=== PATIENT | female | born 1990 | race Caucasian/White ===

== ENCOUNTER → 2018-02-01 12:05 | Outpatient (CLI) | payer BC, SELFPAY ==
--- NOTE | 2018-02-01 | DI.US.S_ITS ---
PROCEDURE: US ABDOMEN COMPLETE INDICATIONS: PAIN TECHNIQUE: Real-time scanning was performed of the abdominal and retroperitoneal organs, with image documentation. COMPARISON: None. FINDINGS: Liver: Liver is normal in size and homogeneous in echotexture except for presence of a 1.5 cm diameter echogenic mass without elevated internal vascularity of the right posterior hepatic segment, with a subtle hypoechoic central component, of uncertain etiology and clinical significance.. Gallbladder: The gallbladder appears normal Biliary ducts: Intrahepatic bile ducts are non-dilated. Extrahepatic bile duct caliber measures 4.8 mm. Normal is 6-7 mm or less in diameter, or 10 mm or less post-cholecystectomy. Pancreas: Visualized portions of the pancreas are sonographically normal. Spleen: Spleen is normal in size and homogeneous in echotexture. Kidneys: Kidneys are normal in size and echotexture. Right kidney measures 9.4 cm long; left kidney measures 10.5 cm long. No hydronephrosis or nephrolithiasis. No solid masses. Aorta: Visualized aorta is normal in caliber at less than 3 cm. Iliacs: Proximal common iliac arteries are normal in caliber at less than 2.5 cm. IVC: Intrahepatic inferior vena cava is patent. Miscellaneous: No free abdominal fluid. IMPRESSION: Incidental finding of a small 1.5 cm maximal dimension hyperechoic structure with low echogenicity within the central portion of this finding at the posterior right hepatic segment, of uncertain etiology and clinical significance. This is unlikely to be related to the pain clinically reported. Followup by ultrasound in 3-6 weeks is recommended unless clinically indicated sooner. Dictated by: Tolu Tinoco M.D. on 02/01/2018 at 15:46 Approved by: Tolu iTnoco M.D. on 02/01/2018 at 15:49
[2018-02-01 13:22] LABS: Add Manual Diff / Slide Review NO; Basophils Percent Auto 0.9 % (0-2); Eosinophils Percent Auto 0.7 % (2-4); Hematocrit 37.2 % (36-46); Hemoglobin 12.6 g/dL (12.0-16.0); Lymphocytes Percent Auto 32.5 % (25-40); Mean Corpuscular HGB Conc 33.8 % (30-36); Mean Corpuscular Hemoglobin 30.5 PG (26-34); Mean Corpuscular Volume 90.3 fL (80-100); Monocytes Percent Auto 4.1 % (3-14); Neutrophils Absolute Auto 4100 /uL (3000-5900); Neutrophils Percent Auto 61.8 % (50-75); Platelet Count 220 X10^3/uL (150-400); Red Blood Cell Count 4.12 X10^6/uL (4.0-5.2); Red Cell Distribution Width 12.8 % (11.6-14.8); White Blood Cell Count 6.7 X10^3/uL (4.5-11.0)
[2018-02-01 13:53] LABS: Alanine Aminotransferase 21 IU/L (9-52); Albumin 4.1 g/dL (3.5-5.0); Albumin Globulin Ratio 1.2 (1.0-2.8); Alkaline Phosphatase 69 U/L (38-126); Aspartate Aminotransferase 24 IU/L (14-36); BUN Creatinine Ratio 17.8 (6-22); Bilirubin Total 0.7 mg/dL (0.2-1.3); Blood Urea Nitrogen 16 mg/dL (7-17); Calcium 9.4 mg/dL (8.4-10.2); Carbon Dioxide 27 mmol/L (22-32); Chloride 104 mmol/L (98-107); Estimated Glomerular Filt Rate > 60.0 mL/min (>60); Globulin 3.3 g/dL (1.7-4.1); Glucose 99 mg/dL (70-100); HEMOLYSIS < 15 (0-50); Lipase 71 U/L (23-300); Potassium 4.2 mmol/L (3.4-5.1); Sodium 140 mmol/L (137-145); Total Protein 7.4 g/dL (6.3-8.2)
[2018-02-01 14:26] LABS: Pregnancy Test Serum,Qual Negative (Negative)
[2018-02-01 16:42] LABS: Hemoglobin A1C% w Est Avg Glu 7.7 % (4.0-6.0)
== END ==
PROVIDERS: Family Provider Physician Assistant Medical; PCP Physician Assistant Medical; Visit Provider Family Medicine
DX: R10.11 Right upper quadrant pain (principal); E10.9 Type 1 diabetes mellitus without complications; K76.9 Liver disease, unspecified
CPT/HCPCS: 36415; 76700; 80053; 83036; 83690; 84703; 85025

== ENCOUNTER → 2018-04-12 07:29 | Outpatient (CLI) | payer BC, SELFPAY ==
--- NOTE | 2018-04-12 | DI.NM.S_ITS ---
PROCEDURE: NM HIDA WITH CCK PHARMACEUTICAL: 5.3 mCi Tc-99m mebrofenin IV; 1.5 mcg CCK IV. INDICATIONS: ABDNORMAL PAIN TECHNIQUE: Following intravenous administration of Tc-99m mebrofenin, sequential anterior abdominal images were obtained. To evaluate the contractile response of the gallbladder in response to Cholecystokinin (CCK), sincalide (0.02 ?g/kg) was administered by slow intravenous infusion approximately 60 minutes after the administration of the radiopharmaceutical. Sequential imaging was continued for 30 minutes after the start of CCK infusion. Gallbladder ejection fraction was calculated. COMPARISON: [facility], , US ABDOMEN COMPLETE, 02/01/2018, 12:53. FINDINGS: Biliary scan: There is normal tracer uptake and excretion by the liver. There is normal visualization of the intrahepatic ducts, common bile duct, and gallbladder. There is normal tracer transit into the duodenum. CCK stimulation: There is normal contractile response of the gallbladder to CCK infusion. The calculated gallbladder ejection fraction is 80%; normal values are above 35%. It has been shown that any patient abdominal pain after CCK administration is related to the rate of CCK injection, rather than to any underlying gallbladder disease (Clinical Nuclear Medicine 2012; 37: 63-70. Journal of Nuclear Medicine 2014; 55: 1-9). IMPRESSION: Normal gallbladder ejection fraction. Dictated by: Tunde Perales M.D. on 04/12/2018 at 12:12 Approved by: Tunde Perales M.D. on 04/12/2018 at 12:14
== END ==
PROVIDERS: Family Provider Physician Assistant Medical; PCP Physician Assistant Medical; Visit Provider Family Medicine
DX: R10.11 Right upper quadrant pain (principal)
CPT/HCPCS: 78227; A9537; J2805

== ENCOUNTER → 2018-07-10 14:32 | Outpatient (CLI) | payer BC, SELFPAY ==
--- NOTE | 2018-07-10 | DI.US.S_ITS ---
PROCEDURE: US ABDOMEN LIMITED INDICATIONS: FOLLOW-UP HEPATIC MASS TECHNIQUE: Real-time focused scanning was performed of the abdomen, with image documentation. COMPARISON: [facility], [place], US ABDOMEN COMPLETE, 02/01/2018, 12:53. FINDINGS: No significant interval change in echogenic mass with central slightly hypo-echogenicity involving the right hepatic lobe posteriorly measuring 1.4 x 0.9 x 1.4 cm. IMPRESSION: No significant change in solid echogenic posterior right hepatic lobe mass likely representing a small cavernous hemangioma. Recommend continued sonographic surveillance or alternatively a hepatic protocol CT or MRI could be performed for confirmation. Dictated by: August Luna [facility] Interpreted: Santiago Whittaker MD on 07/10/2018 at 15:30 Approved by: Santiago Whittaker M.D. on 07/10/2018 at 17:54
== END ==
PROVIDERS: PCP Physician Assistant Medical; Visit Provider Family Medicine
DX: R16.0 Hepatomegaly, not elsewhere classified (principal); R10.11 Right upper quadrant pain
CPT/HCPCS: 76705

== ENCOUNTER → 2018-11-26 10:38 | Outpatient (CLI) | payer BC, SELFPAY | PROVIDERS: PCP Physician Assistant Medical; Visit Provider Physician Assistant | DX: N89.8 Other specified noninflammatory disorders of vagina (principal) | CPT/HCPCS: 87210 ==

== ENCOUNTER 2020-02-05 18:14 | Outpatient (CLI) | payer BC, OTHER, MEDICAID, SELFPAY | END 2020-02-05 19:01 | disposition home or self-care (01) | LOC: LABOR 18:23 → OB 02-06 14:24 | PROVIDERS: PCP Physician Assistant Medical; Referring Provider Obstetrics & Gynecology; Visit Provider Obstetrics & Gynecology | DX: O36.8130 Decreased fetal movements, third trimester, not applicable or unspecified (principal); O24.013 Pre-existing type 1 diabetes mellitus, in pregnancy, third trimester; E10.9 Type 1 diabetes mellitus without complications; Z96.41 Presence of insulin pump (external) (internal); Z79.4 Long term (current) use of insulin; Z3A.33 33 weeks gestation of pregnancy | CPT/HCPCS: 59025; G0378; G0379 ==

== ENCOUNTER 2021-07-12 04:01 | Emergency (ER) | payer SELFPAY ==
[2021-07-12] VITALS (10 sets, daily range): BP systolic 86–125; BP diastolic 46–58; PULSE 96–113; RESP 16; TEMP 36.5–36.9; O2SAT 98–100; BMI 25.9
--- NOTE | 2021-07-12 04:12 | ED_ITS ---
HPI - General Adult <Gisella Nguyen DO - Last Filed: 07/13/21 07:07> General Chief complaint: Diabetic Problem Stated complaint: type 1 diabetic, out of insulin Time Seen by Provider: 07/12/21 04:12 Source: patient Mode of arrival: Ambulatory Limitations: no limitations History of Present Illness HPI narrative: This is a 31-year-old female type 1 diabetic who states she is out of her insu mario. Patient states she is typically fairly well controlled. She has been a diabetic since age 4. She denies any history of retinopathy or kidney disease. She states she is only on insulin she uses an insulin pump. She states she ran out this evening around 9:00 p.m., she thought that she had refills called the pharmacy but there were none available. She will not be able to get a refill until Tuesday as her primary care office is closed over the weekend. Patient states she woke up overnight feeling shaky, nauseated and had 2 or 3 episodes of vomiting. She denies fevers. No chest pain or shortness of breath. No cold cough or congestive type symptoms. She was denies any diarrhea constipation. No dysuria, urgency or frequency. She states her sugars usually run 120-150 normal and so she ran out of her insulin. She has been hospitalized in the past for DKA but she states it is infrequent and has been quite sometime since that occurred. She has had C-sections but denies other surgeries. She denies any drug allergies. No tobacco, no alcohol or illicit. She is accompanied by her . Related Data Home Medications Medication Instructions Recorded Confirmed insulin aspart U-100 [Novolog SUBCUT 04/24/19 04/24/19 Flexpen U-100 Insulin] Previous Rx's Medication Instructions Recorded Oral Appliance for Mils JAILYN #1 ea 01/20/21 insulin lispro 100 unit/mL 1 sliding scale dose SUBCUT 07/12/21 subcutaneous solution (Humalog USEASDIRECTD #10 ml U-100 Insulin) ondansetron 4 mg disintegrating 4 mg PO Q6H PRN #14 tab 07/12/21 tablet Allergies Allergy/AdvReac Type Severity Reaction Status Date / Time No Known Drug Allergies Allergy Verified 04/24/19 10:11 Review of Systems <DO Shirley Medellin Last Filed: 07/13/21 07:07> Review of Systems ROS Unobtainable: All systems reviewed & are unremarkable except as noted in HPI and below Patient History <DO Shirley Medellin Last Filed: 07/13/21 07:07> Social History Smoking Status: Never smoker Smoking Status: Never smoker Substance Use Type: does not use Exam <DO Shirley Medellin Last Filed: 07/13/21 07:07> Narrative Exam Narrative: GENERAL: Alert and oriented x three, female in mild distress. HEENT: Head normocephalic, atraumatic, EOMI, pupils reactive, face symmetric, moist mucous membranes NECK: Supple, full range of motion CARDIOVASCULAR: Regular rate and rhythm without murmurs, rubs or gallops. RESPIRATORY: Breath sounds equal bilaterally, no wheezes rales or rhonchi. ABDOMEN: Soft, nontender. Normoactive bowel sounds all 4 quadrants. No guarding or rebound, rigidity, no mass : No CVA tenderness EXTREMITIES: Normal range of motion, no clubbing or edema. Neurovascularly intact NEUROLOGICAL: Cranial nerves II through XII grossly intact. Moving all extremities SKIN: Warm, dry, no petechiae, no rashes or lesions. Initial Vital Signs Initial Vital Signs: Vital Signs Temperature 97.7 F 07/12/21 04:09 Pulse Rate 96 H 07/12/21 04:09 Respiratory Rate 16 07/12/21 04:09 Blood Pressure 125/58 L 07/12/21 04:09 Pulse Oximetry 100 07/12/21 04:09 <DO Shirley Glass Last Filed: 07/12/21 08:15> Initial Vital Signs Initial Vital Signs: Vital Signs Temperature 97.7 F 07/12/21 04:09 Pulse Rate 96 H 07/12/21 04:09 Respiratory Rate 16 07/12/21 04:09 Blood Pressure 125/58 L 07/12/21 04:09 Pulse Oximetry 100 07/12/21 04:09 Course <DO Shirley Medellin Last Filed: 07/13/21 07:07> Orders Ordered: Discontinued Medications Sodium Chloride (Normal Saline 0.9%) 1,000 mls @ 1,000 mls/hr IV BOLUS ONE Stop: 07/12/21 05:21 Last Infusion: 07/12/21 05:50 Dose: 0 mls/hr Documented by: Admin: 07/12/21 04:41 Dose: 1,000 mls/hr Documented by: GERHARD Sodium Chloride (Normal Saline 0.9%) 1,000 mls @ 1,000 mls/hr IV BOLUS ONE Stop: 07/12/21 06:13 Last Infusion: 07/12/21 06:50 Dose: 0 mls/hr Documented by: Admin: 07/12/21 05:51 Dose: 1,000 mls/hr Documented by: GERHARD Sodium Chloride (Normal Saline 0.9%) 1,000 mls @ 200 mls/hr IV CONT MARCOS Last Infusion: 07/12/21 08:17 Dose: 0 mls/hr Documented by: Admin: 07/12/21 06:50 Dose: 200 mls/hr Documented by: GERHARD Insulin Human Regular (Insulin Regular 100 Unit/Ml 3 Ml Vial) 10 unit IV NOW ONE Stop: 07/12/21 05:41 Last Admin: 07/12/21 05:51 Dose: 10 unit Documented by: GERHARD Cosigned by: SRAVAN Ondansetron HCl (Ondansetron 4 Mg/2 Ml Inj) 4 mg IV NOW ONE Stop: 07/12/21 04:51 Last Admin: 07/12/21 04:59 Dose: 4 mg Documented by: GERHARD Reevaluation(s) Reevaluation #1: Patient has had blood pressure in the 90s but is not having any symptoms she is ambulating the bathroom several times to urinate. We did review her labs, she does not appear to be TKA but is hyperglycemic with some features. Plan for fluids, insulin and recheck. Patient typically uses a pump and is unsure what sort of sliding scale she would normally use. Her basal rate is typically 4 units. Vital Signs Vital signs: Vital Signs - 8 hr 07/12/21 04:09 07/12/21 05:03 07/12/21 05:30 Temperature 97.7 F Pulse Rate 96 H 103 H 104 H Respiratory Rate 16 Blood Pressure 125/58 L 100/52 L 91/49 L Pulse Oximetry 100 100 100 07/12/21 06:00 07/12/21 06:01 07/12/21 06:03 Temperature 98.5 F Pulse Rate 112 H 107 H 109 H Respiratory Rate Blood Pressure 91/50 L Pulse Oximetry 99 100 100 07/12/21 06:30 07/12/21 07:00 07/12/21 07:30 Temperature Pulse Rate 112 H 113 H 112 H Respiratory Rate Blood Pressure 95/46 L 97/54 L 86/53 L Pulse Oximetry 99 99 98 07/12/21 07:36 Temperature Pulse Rate 107 H Respiratory Rate Blood Pressure 88/51 L Pulse Oximetry 98 <Edwin Quach DO - Last Filed: 07/12/21 08:15> Orders Ordered: Discontinued Medications Sodium Chloride (Normal Saline 0.9%) 1,000 mls @ 1,000 mls/hr IV BOLUS ONE Stop: 07/12/21 05:21 Last Infusion: 07/12/21 05:50 Dose: 0 mls/hr Documented by: Admin: 07/12/21 04:41 Dose: 1,000 mls/hr Documented by: GERHARD Sodium Chloride (Normal Saline 0.9%) 1,000 mls @ 1,000 mls/hr IV BOLUS ONE Stop: 07/12/21 06:13 Last Infusion: 07/12/21 06:50 Dose: 0 mls/hr Documented by: Admin: 07/12/21 05:51 Dose: 1,000 mls/hr Documented by: GERHARD Sodium Chloride (Normal Saline 0.9%) 1,000 mls @ 200 mls/hr IV CONT MARCOS Last Infusion: 07/12/21 08:17 Dose: 0 mls/hr Documented by: Admin: 07/12/21 06:50 Dose: 200 mls/hr Documented by: GERHARD Insulin Human Regular (Insulin Regular 100 Unit/Ml 3 Ml Vial) 10 unit IV NOW ONE Stop: 07/12/21 05:41 Last Admin: 07/12/21 05:51 Dose: 10 unit Documented by: GERHARD Cosigned by: SRAVAN Ondansetron HCl (Ondansetron 4 Mg/2 Ml Inj) 4 mg IV NOW ONE Stop: 07/12/21 04:51 Last Admin: 07/12/21 04:59 Dose: 4 mg Documented by: GERHARD Vital Signs Vital signs: Vital Signs - 8 hr 07/12/21 04:09 07/12/21 05:03 07/12/21 05:30 Temperature 97.7 F Pulse Rate 96 H 103 H 104 H Respiratory Rate 16 Blood Pressure 125/58 L 100/52 L 91/49 L Pulse Oximetry 100 100 100 07/12/21 06:00 07/12/21 06:01 07/12/21 06:03 Temperature 98.5 F Pulse Rate 112 H 107 H 109 H Respiratory Rate Blood Pressure 91/50 L Pulse Oximetry 99 100 100 07/12/21 06:30 07/12/21 07:00 07/12/21 07:30 Temperature Pulse Rate 112 H 113 H 112 H Respiratory Rate Blood Pressure 95/46 L 97/54 L 86/53 L Pulse Oximetry 99 99 98 07/12/21 07:36 Temperature Pulse Rate 107 H Respiratory Rate Blood Pressure 88/51 L Pulse Oximetry 98 Medical Decision Making <Gisella Nguyen, DO - Last Filed: 07/13/21 07:07> Lab Data Result diagrams: 07/12/21 04:30 07/12/21 07:25 Labs: Lab Results 07/12/21 07/12/21 07/12/21 Range/Units 04:30 04:30 04:30 WBC 6.1 (4.5-11.0) X10^3/uL RBC 3.84 L (4.0-5.2) X10^6/uL Hgb 11.4 L (12.0-16.0) g/dL Hct 34.8 L (36-46) % MCV 90.5 (80-100) fL MCH 29.7 (26-34) PG MCHC 32.8 (30-36) % RDW 14.0 (11.6-14.8) % Plt Count 195 (150-400) X10^3/uL Neut % (Auto) 65.8 (50-75) % Lymph % (Auto) 27.9 (25-40) % Schleicher % (Auto) 4.7 (3-14) % Eos % (Auto) 0.9 L (2-4) % Baso % (Auto) 0.7 (0-2) % Neut # (Auto) 4000 (4909-2456) /uL Lymph # (Auto) 1700 (1422-0727) /uL Schleicher # (Auto) 300 (0-900) /uL Eos # (Auto) 100 (0-450) /uL Baso # (Auto) 0 (0-100) /uL VBG pH 7.41 (7.33-7.43) VBG pCO2 37.8 L (45-50) mmHg VBG pO2 60 H (35-45) mmHg VBG HCO3 24 (23-28) mmol/L VBG Total CO2 25 (24-29) mmol/L VBG O2 Saturation 91 H (70-75) % VBG Base Excess -1.0 L (0-4) mmol/L Sodium 135 L (137-145) mmol/L Potassium 5.1 (3.4-5.1) mmol/L Chloride 103 (98-107) mmol/L Carbon Dioxide 18 L (22-32) mmol/L BUN 18 H (7-17) mg/dL Creatinine 0.89 (0.52-1.04) mg/dL Estimated GFR > 60.0 (>60) mL/min BUN/Creatinine Ratio 20.2 (6-22) Glucose 450 H (70-100) mg/dL Calcium 9.6 (8.4-10.2) mg/dL Total Bilirubin 0.7 (0.2-1.3) mg/dL AST 34 (14-36) IU/L ALT 12 (<35) IU/L Alkaline Phosphatase 82 (38-126) U/L Total Protein 6.8 (6.3-8.2) g/dL Albumin 4.4 (3.5-5.0) g/dL Globulin 2.4 (1.7-4.1) g/dL Albumin/Globulin Ratio 1.8 (1.0-2.8) Procalcitonin 0.04 (<0.5) ng/mL Ketones 1.65 H (<0.27) mmol/L 07/12/21 Range/Units 07:25 WBC (4.5-11.0) X10^3/uL RBC (4.0-5.2) X10^6/uL Hgb (12.0-16.0) g/dL Hct (36-46) % MCV (80-100) fL MCH (26-34) PG MCHC (30-36) % RDW (11.6-14.8) % Plt Count (150-400) X10^3/uL Neut % (Auto) (50-75) % Lymph % (Auto) (25-40) % Schleicher % (Auto) (3-14) % Eos % (Auto) (2-4) % Baso % (Auto) (0-2) % Neut # (Auto) (6096-1507) /uL Lymph # (Auto) (7478-2000) /uL Schleicher # (Auto) (0-900) /uL Eos # (Auto) (0-450) /uL Baso # (Auto) (0-100) /uL VBG pH (7.33-7.43) VBG pCO2 (45-50) mmHg VBG pO2 (35-45) mmHg VBG HCO3 (23-28) mmol/L VBG Total CO2 (24-29) mmol/L VBG O2 Saturation (70-75) % VBG Base Excess (0-4) mmol/L Sodium 136 L (137-145) mmol/L Potassium 4.1 (3.4-5.1) mmol/L Chloride 110 H (98-107) mmol/L Carbon Dioxide 18 L (22-32) mmol/L BUN 19 H (7-17) mg/dL Creatinine 0.89 (0.52-1.04) mg/dL Estimated GFR > 60.0 (>60) mL/min BUN/Creatinine Ratio 21.3 (6-22) Glucose 295 H D (70-100) mg/dL Calcium 8.9 (8.4-10.2) mg/dL Total Bilirubin (0.2-1.3) mg/dL AST (14-36) IU/L ALT (<35) IU/L Alkaline Phosphatase (38-126) U/L Total Protein (6.3-8.2) g/dL Albumin (3.5-5.0) g/dL Globulin (1.7-4.1) g/dL Albumin/Globulin Ratio (1.0-2.8) Procalcitonin (<0.5) ng/mL Ketones (<0.27) mmol/L Point of Care Testing Test Results Negative Glucose POC 323 Urine Dip Bedside Urine Glucose 1000 mg/dl Bedside Urine Bilirubin - Negative Bedside Urine Ketone +++ 80 Urine Specific [place] 1.02 Bedside Urine Occult Blood - Negative Bedside Urine pH 5.5 Bedside Urine Protein - Negative Bedside Urine Urobilinogen - Negative Bedside Urine Nitrite - Negative Bedside Urine Leukocytes - Negative Esterase Point of care testing: Point of Care Testing Test Results Negative Glucose POC 323 Urine Dip Bedside Urine Glucose 1000 mg/dl Bedside Urine Bilirubin - Negative Bedside Urine Ketone +++ 80 Urine Specific [place] 1.02 Bedside Urine Occult Blood - Negative Bedside Urine pH 5.5 Bedside Urine Protein - Negative Bedside Urine Urobilinogen - Negative Bedside Urine Nitrite - Negative Bedside Urine Leukocytes - Negative Esterase MDM Narrative Medical decision making narrative: This is a 31-year-old type 1 diabetic who states she ran out of her insulin overnight. She typically uses an insulin pump. She woke up feeling unwell and having vomiting. Patient is tachycardic here in the department. Her glucose was in the 300 range on point of care but is 450 on serum. VBG shows a pH of 7 .4 0 7, pCO2 of 37 with PO2 60 and bicarb of 23. Her anion gap is 14 with a CO2 of 18. Patient's ketones are positive on urine but no signs of infection. Potassium is 5.1. Patient was given 2 L of fluid, and recheck glucose was 353 approximately 35 mins after 10 units of insulin. As patient's 1st point of care glucose was very similar to this in her serum glucose was almost 100 points different I would recheck serum labs. Patient signed out to Dr. Quach for continued management. Plan to repeat labs. Dr Quach: Received turned over. Reviewed patient's history and physical exam. Patient not in DKA. Blood sugar improving with fluids. I suspect that her hyperglycemia is because she has run out of her insulin. She is on Humalog. Will refill this for her for her pump. She was instructed to contact her primary doctor for follow-up. She expressed understanding and agreement. <Edwin Quach, DO - Last Filed: 07/12/21 08:15> Lab Data Labs: Lab Results 07/12/21 07/12/21 07/12/21 Range/Units 04:30 04:30 04:30 WBC 6.1 (4.5-11.0) X10^3/uL RBC 3.84 L (4.0-5.2) X10^6/uL Hgb 11.4 L (12.0-16.0) g/dL Hct 34.8 L (36-46) % MCV 90.5 (80-100) fL MCH 29.7 (26-34) PG MCHC 32.8 (30-36) % RDW 14.0 (11.6-14.8) % Plt Count 195 (150-400) X10^3/uL Neut % (Auto) 65.8 (50-75) % Lymph % (Auto) 27.9 (25-40) % Schleicher % (Auto) 4.7 (3-14) % Eos % (Auto) 0.9 L (2-4) % Baso % (Auto) 0.7 (0-2) % Neut # (Auto) 4000 (8083-6622) /uL Lymph # (Auto) 1700 (7891-1190) /uL Schleicher # (Auto) 300 (0-900) /uL Eos # (Auto) 100 (0-450) /uL Baso # (Auto) 0 (0-100) /uL VBG pH 7.41 (7.33-7.43) VBG pCO2 37.8 L (45-50) mmHg VBG pO2 60 H (35-45) mmHg VBG HCO3 24 (23-28) mmol/L VBG Total CO2 25 (24-29) mmol/L VBG O2 Saturation 91 H (70-75) % VBG Base Excess -1.0 L (0-4) mmol/L Sodium 135 L (137-145) mmol/L Potassium 5.1 (3.4-5.1) mmol/L Chloride 103 (98-107) mmol/L Carbon Dioxide 18 L (22-32) mmol/L BUN 18 H (7-17) mg/dL Creatinine 0.89 (0.52-1.04) mg/dL Estimated GFR > 60.0 (>60) mL/min BUN/Creatinine Ratio 20.2 (6-22) Glucose 450 H (70-100) mg/dL Calcium 9.6 (8.4-10.2) mg/dL Total Bilirubin 0.7 (0.2-1.3) mg/dL AST 34 (14-36) IU/L ALT 12 (<35) IU/L Alkaline Phosphatase 82 (38-126) U/L Total Protein 6.8 (6.3-8.2) g/dL Albumin 4.4 (3.5-5.0) g/dL Globulin 2.4 (1.7-4.1) g/dL Albumin/Globulin Ratio 1.8 (1.0-2.8) Procalcitonin 0.04 (<0.5) ng/mL Ketones 1.65 H (<0.27) mmol/L 07/12/21 Range/Units 07:25 WBC (4.5-11.0) X10^3/uL RBC (4.0-5.2) X10^6/uL Hgb (12.0-16.0) g/dL Hct (36-46) % MCV (80-100) fL MCH (26-34) PG MCHC (30-36) % RDW (11.6-14.8) % Plt Count (150-400) X10^3/uL Neut % (Auto) (50-75) % Lymph % (Auto) (25-40) % Schleicher % (Auto) (3-14) % Eos % (Auto) (2-4) % Baso % (Auto) (0-2) % Neut # (Auto) (3584-6474) /uL Lymph # (Auto) (3851-2229) /uL Schleicher # (Auto) (0-900) /uL Eos # (Auto) (0-450) /uL Baso # (Auto) (0-100) /uL VBG pH (7.33-7.43) VBG pCO2 (45-50) mmHg VBG pO2 (35-45) mmHg VBG HCO3 (23-28) mmol/L VBG Total CO2 (24-29) mmol/L VBG O2 Saturation (70-75) % VBG Base Excess (0-4) mmol/L Sodium 136 L (137-145) mmol/L Potassium 4.1 (3.4-5.1) mmol/L Chloride 110 H (98-107) mmol/L Carbon Dioxide 18 L (22-32) mmol/L BUN 19 H (7-17) mg/dL Creatinine 0.89 (0.52-1.04) mg/dL Estimated GFR > 60.0 (>60) mL/min BUN/Creatinine Ratio 21.3 (6-22) Glucose 295 H D (70-100) mg/dL Calcium 8.9 (8.4-10.2) mg/dL Total Bilirubin (0.2-1.3) mg/dL AST (14-36) IU/L ALT (<35) IU/L Alkaline Phosphatase (38-126) U/L Total Protein (6.3-8.2) g/dL Albumin (3.5-5.0) g/dL Globulin (1.7-4.1) g/dL Albumin/Globulin Ratio (1.0-2.8) Procalcitonin (<0.5) ng/mL Ketones (<0.27) mmol/L Point of Care Testing Test Results Negative Glucose POC 323 Urine Dip Bedside Urine Glucose 1000 mg/dl Bedside Urine Bilirubin - Negative Bedside Urine Ketone +++ 80 Urine Specific [place] 1.02 Bedside Urine Occult Blood - Negative Bedside Urine pH 5.5 Bedside Urine Protein - Negative Bedside Urine Urobilinogen - Negative Bedside Urine Nitrite - Negative Bedside Urine Leukocytes - Negative Esterase Point of care testing: Point of Care Testing Test Results Negative Glucose POC 323 Urine Dip Bedside Urine Glucose 1000 mg/dl Bedside Urine Bilirubin - Negative Bedside Urine Ketone +++ 80 Urine Specific [place] 1.02 Bedside Urine Occult Blood - Negative Bedside Urine pH 5.5 Bedside Urine Protein - Negative Bedside Urine Urobilinogen - Negative Bedside Urine Nitrite - Negative Bedside Urine Leukocytes - Negative Esterase MDM Narrative Medical decision making narrative: This is a 31-year-old type 1 diabetic who states she ran out of her insulin overnight. She typically uses an insulin pump. She woke up feeling unwell and having vomiting. Patient is tachycardic here in the department. Her glucose was in the 300 range on point of care but is 450 on serum. VBG shows a pH of 7.4 0 7, pCO2 of 37 with PO2 60 and bicarb of 23. Her anion gap is 14 with a CO2 of 18. Patient's ketones are positive on urine but no signs of infection. Potassium is 5.1. Patient was given 2 L of fluid, and recheck glucose was 353 approximately 35 mins after 10 units of insulin. As patient's 1st point of care glucose was very similar to this in her serum glucose was almost 100 points different I would recheck serum labs. Patient signed out to Dr. Quach for continued management. Dr Quach: Received turned over. Reviewed patient's history and physical exam. Patient not in DKA. Blood sugar improving with fluids. I suspect that her hyperglycemia is because she has run out of her insulin. She is on Humalog. Will refill this for her for her pump. She was instructed to contact her primary doctor for follow-up. She expressed understanding and agreement. Discharge Plan Departure Patient Disposition: Home Clinical Impression: Hyperglycemia Instructions: DI for Diabetes Type 1 -- Adult Activity Restrictions/Additional Instructions: Follow-up with your physician for recheck. Prescription sent to [facility] in [place]. This return for fevers, persistently elevated glucose or hypoglycemia, new chest pain, shortness of breath, persistent vomiting, abdominal pain, urinary symptoms or other new or concerning symptoms. Prescriptions: New ondansetron 4 mg tablet,disintegrating 4 mg PO Q6H PRN (Reason: nausea and vomiting) Qty: 14 0RF insulin lispro [Humalog U-100 Insulin] 100 unit/mL solution 1 sliding scale dose SUBCUT USEASDIRECTD Qty: 10 1RF No Action (DME) Oral Appliance for Mils JAILYN See Rx Instructions .Route .MEDSUPPLY Qty: 1 0RF Rx Instructions: As directed insulin aspart U-100 subcut 0RF Referrals: Susanne Blunt PA-C [Primary Care Provider] -
[2021-07-12] MEDS: SODIUM CHLORIDE 0.9% 1,000 ML 1000 ML IV ×2 (04:41→05:51)
[2021-07-12 04:47] LABS: Add Manual Diff / Slide Review NO; Basophils Absolute Auto 0 /uL (0-100); Basophils Percent Auto 0.7 % (0-2); Eosinophils Absolute Auto 100 /uL (0-450); Eosinophils Percent Auto 0.9 % (2-4); Hematocrit 34.8 % (36-46); Hemoglobin 11.4 g/dL (12.0-16.0); Lymphocytes Absolute Auto 1700 /uL (1100-4500); Lymphocytes Percent Auto 27.9 % (25-40); Mean Corpuscular HGB Conc 32.8 % (30-36); Mean Corpuscular Hemoglobin 29.7 PG (26-34); Mean Corpuscular Volume 90.5 fL (80-100); Monocytes Absolute Auto 300 /uL (0-900); Monocytes Percent Auto 4.7 % (3-14); Neutrophils Absolute Auto 4000 /uL (1500-7000); Neutrophils Percent Auto 65.8 % (50-75); Platelet Count 195 X10^3/uL (150-400); Red Blood Cell Count 3.84 X10^6/uL (4.0-5.2); White Blood Cell Count 6.1 X10^3/uL (4.5-11.0)
[2021-07-12 04:48] LABS: HCO3 VBG 24 mmol/L (23-28); Oxygen Saturation VBG 91 % (70-75); PCO2 VBG 37.8 mmHg (45-50); PO2 VBG 60 mmHg (35-45); Total CO2 VBG 25 mmol/L (24-29); pH VBG 7.41 (7.33-7.43)
[2021-07-12 04:57] LABS: Alanine Aminotransferase 12 IU/L (<35); Albumin 4.4 g/dL (3.5-5.0); Albumin Globulin Ratio 1.8 (1.0-2.8); Alkaline Phosphatase 82 U/L (38-126); Aspartate Aminotransferase 34 IU/L (14-36); BUN Creatinine Ratio 20.2 (6-22); Bilirubin Total 0.7 mg/dL (0.2-1.3); Blood Urea Nitrogen 18 mg/dL (7-17); Calcium 9.6 mg/dL (8.4-10.2); Carbon Dioxide 18 mmol/L (22-32); Chloride 103 mmol/L (98-107); Estimated Glomerular Filt Rate > 60.0 mL/min (>60); Globulin 2.4 g/dL (1.7-4.1); Glucose 450 mg/dL (70-100); Potassium 5.1 mmol/L (3.4-5.1); Sodium 135 mmol/L (137-145); Total Protein 6.8 g/dL (6.3-8.2)
[2021-07-12] MEDS: ONDANSETRON 4 MG/2 ML INJ IV (04:59)
[2021-07-12 05:12] LABS: HEMOLYSIS 20 (0-50); Ketones (Beta-Hydroxybutyrate) 1.65 mmol/L (<0.27)
[2021-07-12 05:14] LABS: Procalcitonin 0.04 ng/mL (<0.5)
[2021-07-12] MEDS: INSULIN REGULAR 100 UNIT/ML 3 ML VIAL 10 UNIT IV (05:51)
[2021-07-12] MEDS: SODIUM CHLORIDE 0.9% 1,000 ML 200 ML IV (06:50)
[2021-07-12 07:47] LABS: BUN Creatinine Ratio 21.3 (6-22); Blood Urea Nitrogen 19 mg/dL (7-17); Calcium 8.9 mg/dL (8.4-10.2); Carbon Dioxide 18 mmol/L (22-32); Chloride 110 mmol/L (98-107); Estimated Glomerular Filt Rate > 60.0 mL/min (>60); Glucose 295 mg/dL (70-100); HEMOLYSIS < 15 (0-50); Potassium 4.1 mmol/L (3.4-5.1); Sodium 136 mmol/L (137-145)
== END 2021-07-12 08:19 | disposition home or self-care (01) ==
PROVIDERS: Emergency Medicine; Emergency Provider Emergency Medicine; PCP Physician Assistant Medical
DX: E10.649 Type 1 diabetes mellitus with hypoglycemia without coma (principal)
CPT/HCPCS: 36415; 80048; 80053; 81003; 81025; 82009; 82805; 82962; 84145; 85025; 96361; 96374; 96375; 99284; J2405

== ENCOUNTER → 2022-10-27 07:54 | Outpatient (CLI) | payer BC, OTHER, MEDICAID, SELFPAY ==
--- NOTE | 2022-10-27 | DI.US.S_ITS ---
PROCEDURE: US ABDOMEN LIMITED INDICATIONS: HEPATOMEGALY TECHNIQUE: Real-time focused scanning was performed of the abdomen, with image documentation. COMPARISON: [facility], [place], US ABDOMEN LIMITED, 07/10/2018, 14:40. FINDINGS: Liver is enlarged measuring 17 cm. Focus of increased echogenicity in the right lobe is present measuring 14 x 13 by 16 mm, unchanged. Gallbladder demonstrates no stones. Wall thickness is normal measuring 1.8 mm. Common bile duct is not visualized. IMPRESSION: Hepatomegaly. Stable appearance of increased echogenicity within the liver suggestive of hemangioma. Dictated by: Bri Lincoln M.D. on 10/27/2022 at 15:40 Approved by: Bri Lincoln M.D. on 10/27/2022 at 15:42
== END ==
PROVIDERS: PCP Physician Assistant Medical; Referring Provider Physician Assistant Medical; Visit Provider Physician Assistant Medical
DX: R16.0 Hepatomegaly, not elsewhere classified (principal)
CPT/HCPCS: 76705